=== PATIENT | female | born 1960 | race Caucasian/White ===

== ENCOUNTER 2016-09-02 12:31 | Emergency (ER) | payer OTHER ==
[~2016-09-02] VITALS: Ht 167.6 cm; Wt 72.7 kg
[~2016-09-02 12:31] MED LIST: ALLER CLEAR; ASPI-973 PO; ATRV10T PO; GABA-502 PO; INSU100V28 SUBQ; LISI-571 PO
[2016-09-02 12:37] VITALS: BP 91/52; PULSE 67; RESP 20; O2SAT 99
[2016-09-02 13:08] VITALS: BP 116/55; PULSE 62; RESP 15; O2SAT 100
--- NOTE | 2016-09-02 13:21 | ED.REPORT ---
HPI-General Illness Date of Service Sep 02, 2016 ED Provider: Markus Ramos MD Pt is a 56 year old female with a history of HTN and DM who presents to the ED with complaints of increasing weakness that started 2 weeks ago. Pt reports that she had several episodes of diarrhea, 2 weeks ago, and she has been feeling increasingly weak since then. Pt reports diaphoresis and occasional tremors. Her last episode of diarrhea was one week ago. She denies any upper respiratory symptoms, fevers, chills, nausea, vomiting, myalgias, arthralgia or any other symptoms. Nursing Notes Stated Complaint: DIZZINESS,COLD SYMPTOMS Chief Complaint: FLU/Cold Symptoms Nursing Notes Reviewed: Yes Allergies: Coded Allergies: No Known Allergies (Unverified , 11/11/12) Scheduled Aspirin (Aspirin) 81 Mg Tablet 81 MG PO DAILY Atorvastatin (Lipitor) 10 Mg Tab 10 MG PO DAILY Gabapentin (Gabapentin) 300 Mg Capsule 300 MG PO TID Insulin Regular, Human (HUMulin-R U100 Insulin Vial) 100 Unit/1 Ml Vial 1 UNIT SUBQ sliding scale Lisinopril (Lisinopril) 5 Mg Tablet 5 MG PO BID Scheduled PRN ([aller clear]) 1 TAB DAILY PRN PRN allergy sx General Time Seen by MD: 13:08 Chief Complaint Weakness Hx Obtained From: Patient Arrived By: Walk-in Sudden in Onset?: Yes Onset Occurred: More than a week ago... Symptom Duration: Since onset Severity: Current: No pain currently Severity: Maximum: No pain Similar Sx Previous: Yes Past Medical History Past Medical History Reports: Diabetes mellitus, Hypertension Smoking History Current Every Day Smoker Ambulatory Status Independent Review of Systems Full Review of Systems Constitutional: Reports: Weakness - generalized, Denies: Chills, Fever, Malaise Respiratory: Denies: Non-productive cough, Shortness of breath, Wheezing Cardiovascular: Denies: Chest pain, Syncope GI: Reports: Diarrhea, Denies: Abdominal pain, Constipation, Nausea, Vomiting Female: Denies: Dysuria, Flank pain, Urinary frequency Musculoskeletal: Denies: Back pain, Extremity pain, Neck pain Skin: Reports Diaphoresis Neurologic: Denies: Change LOC, Dizziness, Headache, Syncope Complete sys rev & neg: except as marked. Physical Exam Vital Signs Vital Signs Date Time Temp Pulse Resp B/P Pulse Ox O2 Delivery O2 Flow Rate FiO2 09/02/16 13:08 62 15 116/55 100 Room Air 09/02/16 12:37 36.2 67 20 91/52 99 Room Air Initial VS: Reviewed General/Constitutional: Well-developed, Well-nourished Head / Eyes: Atraumatic, Normocephalic, PERRL ENT: Mucous membranes moist, Conjunctiva normal, No scleral icterus Neck: Supple, Non-tender, Full range of motion Respiratory: Breath sounds normal, Clear to auscultation, No respiratory distress Cardiovascular: Regular rate & rhythm, Heart sounds normal, Intact distal pulses Abdomen / GI: Soft, Non-tender, No guarding, No rebound, No distention Skin: Warm, Dry, No cyanosis Neurologic: Alert, Oriented, Nonfocal Psychiatric: Mood/affect normal, Behavior normal, Normal thought content ENT: Atraumatic, Airway patent Mouth: Positive: Mucous membranes dry Neurologic: Oriented X3, Speech NL, No motor deficits Gait Abnormality: Positive: Staggering gait (Mild, can walk without assistance) Full strength in all extremities. Interpretation & Diagnostics Lab Results Interpretation Result Diagram: 09/02/16 1436 09/02/16 1436 Test 09/02/16 14:36 White Blood Count 6.8th/mm3 (3.8-10.1) Red Blood Count 4.13mil/mm3 (3.90-5.20) Hemoglobin 12.3g/dL (12.0-15.6) Hematocrit 37.1% (35.0-46.0) Mean Corpuscular Volume 89.8fL (81-100) Mean Corpuscular Hemoglobin 29.8pg (27.0-35.0) Mean Corpuscular Hemoglobin Concent 33.2% (32.0-37.0) Red Cell Distribution Width 12.4% (12.3-15.4) Platelet Count 270bil/L (150-400) Neutrophils (%) (Auto) 60.5% (40-74) Lymphocytes (%) (Auto) 26.1% (14-46) Monocytes (%) (Auto) 9.6% (4-12) Eosinophils (%) (Auto) 2.8% (0-5) Basophils (%) (Auto) 0.9% (0-3) Sodium Level 138mEq/L (134-144) Potassium Level 4.6mEq/L (3.5-5.2) Chloride Level 100mEq/L (97-108) Carbon Dioxide Level 25mmol/L (18-29) Blood Urea Nitrogen 24mg/dL (6-24) Creatinine 1.50mg/dL (0.57-1.00) Estimat Glomerular Filtration Rate 51mL/min (>59) Glucose Level 371mg/dL (60-99) Calcium Level 9.1mg/dL (8.5-10.1) Magnesium Level 2.1mg/dL (1.6-2.6) Total Bilirubin 0.2mg/dL (0.0-1.2) Aspartate Amino Transf (AST/SGOT) 16U/L (0-50) Alanine Aminotransferase (ALT/SGPT) 13U/L (0-32) Alkaline Phosphatase 66U/L (25-150) Total Protein 6.8g/dL (6.4-8.4) Albumin 3.5g/dL (3.4-5.0) Lipase 10U/L (13-60) Re-Eval/Medical Decision Med Decision/Clinical Course Labs normal other than hyperglycemia. I think O/P follow-up is appropriate. Source of Hx: Old records Time of Eval: 14:52 Re-Evaluation/Progress Note: Pt is rechecked and informed of the plan to give her some IV fluids, and well as obtain some labs. She understands and agrees, all questions are addressed. Counseled Regarding: Diagnosis, Lab results, When/why to return to ED Discharge & Departure Primary Impression: Hyperglycemia Additional Impression: Smoking addiction Disposition: Home Discharge Condition All VS Reviewed: Yes Condition: Stable Patient Instructions: How to Stop Smoking (GEN) Additional Instructions: No dangerous cause for your symptoms or weakness was discovered. I recommend better control of your blood sugar and smoking cessation. Follow-up with your doctor next week for further evaluation. Referrals: Eufemia Montanez MD (PCP) Care Transferred to: Dr. Foreman Care Transferred at: 14:55 Scribe Attestation Portions of this note were transcribed by Libra Briones. I, Dr. Ramos personally performed the history, physical exam and medical decision-making; I reviewed and confirmed the accuracy of the information in the transcribed note. Signed by: Libra Graves, 09/02/2016 [Time] copies to: Eufemia Montanez MD, Kirk H MD Sep 02, 2016 13:21 NAWAF BRIONES Sep 02, 2016 14:14
[2016-09-02] MEDS ORDERED: 0.9% Sodium Chloride 1,000 ML IV ONE (14:15)
[2016-09-02] MEDS ORDERED: Ondansetron 2 mg/mL 2 mL Inj IVPUSH PRN (14:15)
[2016-09-02] MEDS ORDERED: Pantoprazole 4 mg/mL 10 mL Inj IVPUSH ONE (14:15)
[2016-09-02 14:48] LABS: BASOPHILS % (AUTO) 0.9 % (0-3); EOSINOPHILS % (AUTO) 2.8 % (0-5); MONOCYTES % (AUTO) 9.6 % (4-12); Mean Corpuscular Hemoglobin 29.8 pg (27.0-35.0); Mean Corpuscular Volume 89.8 fL (81-100); NEUTROPHILS % (AUTO) 60.5 % (40-74); Platelet Count 270 bil/L (150-400)
[2016-09-02 15:07] LABS: Magnesium 2.1 mg/dL (1.6-2.6)
[2016-09-02 15:34] VITALS: BP 115/65; PULSE 63; RESP 16; O2SAT 100
== END 2016-09-02 15:37 | disposition home or self-care (01) ==
LOC: SED 12:31
DX: E11.65 Type 2 diabetes mellitus with hyperglycemia (principal); F17.200 Nicotine dependence, unspecified, uncomplicated; I10 Essential (primary) hypertension; Z79.82 Long term (current) use of aspirin; Z79.4 Long term (current) use of insulin